=== PATIENT | male | born 1965 | race Caucasian/White ===

== ENCOUNTER 2023-07-10 15:49 | Emergency (ER) | payer MEDICAID ==
[~2023-07-10] VITALS: Ht 172.7 cm; Wt 102.1 kg
[~2023-07-10 15:49] MED LIST: GLIM4TAB PO; LISI-217 PO; METF1000 PO; PIOG15TA8 PO; SIMV-46 PO
[2023-07-10 15:57] VITALS: BP_SYST 110; PULSE 98; RESP 22; TEMP 97.5; O2SAT 94
[2023-07-10 16:53] LABS: COVID19 ANTIGEN SOFIA FIA NEGATIVE (NEGATIVE); INFLUENZA TYPE A Negative (NEGATIVE); INFLUENZA TYPE B NEGATIVE (NEGATIVE)
[2023-07-10] MEDS ORDERED: ALBMDI INH (17:11)
[2023-07-10] MEDS ORDERED: ZIT250 PO (17:11)
[2023-07-10 17:41] VITALS: BP_SYST 110; PULSE 98; RESP 22; TEMP 97.5; O2SAT 94
== END 2023-07-10 17:42 | disposition home or self-care (01) ==
LOC: SED 15:49
DX: J98.4 Other disorders of lung (principal); R05.9 Cough, unspecified; R09.89 Other specified symptoms and signs involving the circulatory and respiratory systems; E11.9 Type 2 diabetes mellitus without complications; I10 Essential (primary) hypertension; Z79.899 Other long term (current) drug therapy; Z20.822 Contact with and (suspected) exposure to COVID-19
CPT/HCPCS: 36415; 71045; 99284